=== PATIENT | male | born 1950 | race Caucasian/White ===

== ENCOUNTER → 2020-12-30 09:50 | Outpatient (CLI) | payer MEDICARE, SELFPAY ==
[2020-12-11 14:45] VITALS: BMI 31.5
--- NOTE | 2020-12-30 09:55 | ECHOD_ITS ---
Reason For Study: CHEST PAIN Procedure This was a 2D Doppler, Color Flow transthoracic echocardiogram. The study was technically difficult. Exam performed in department. Left Ventricle Normal LV size. Left ventricular systolic function is normal. The estimated ejection fraction is 65 %. No evidence for diastolic dysfunction. No regional wall motion abnormalities noted. Right Ventricle Normal RV size. Normal systolic function. Atria Normal left atrium. Normal right atrium. No doppler evidence for ASD. Mitral Valve There is no mitral annular calcification. Mild focal mitral valve calcification of the anterior leaflet. The mitral valve chordae are thickened and/or calcified. Trivial mitral valve insufficiency. Tricuspid Valve Normal tricuspid valve. Trivial tricuspid valve insufficiency. Right ventricular systolic pressure estimated to be 30 mmHg. Aortic Valve Trisinus/trileaflet aortic valve. Mild focal aortic valve thickening. Pulmonic Valve The pulmonic valve is not well visualized. Great Vessels Normal sized aortic root. Pericardium/Pleural No pericardial effusion. MMode/2D Measurements & Calculations LVIDd: 4.7 cm IVSd: 1.0 cm Ao root diam: 3.8 cm LVIDs: 2.6 cm LVPWd: 1.1 cm RVDd: 3.2 cm FS: 44.1 % LAV(MOD-bp): 53.3 ml LA A4 area: 17.5 cm2 RA A4 area: 14.0 cm2 LAV(MOD-bp) Indexed: 25.7 ml/m2 LAV(MOD-sp2): 51.5 ml LAV(MOD-sp4): 50.5 ml Time Measurements MV dec time: 0.26 sec Doppler Measurements & Calculations MV E max arcadio: 69.5 cm/sec Lat Peak E' Arcadio: 6.8 cm/sec Med Peak E' Arcadio: 9.2 cm/sec MV A max arcadio: 76.6 cm/sec E/E' lat: 10.3 E/E' med: 7.5 MV E/A: 0.91 Ao V2 max: 132.3 cm/sec LV V1 max: 123.5 cm/sec PA V2 max: 102.9 cm/sec Ao max P.0 mmHg LV V1 max P.1 mmHg TR max arcadio: 257.3 cm/sec TR max P.5 mmHg ECHO/Echo Complete Interpretation Summary The study was technically difficult. Left ventricular systolic function is normal. The estimated ejection fraction is 65 %. Mild focal mitral valve calcification of the anterior leaflet. The mitral valve chordae are thickened and/or calcified. Trivial mitral valve insufficiency. Trivial tricuspid valve insufficiency. Mild focal aortic valve thickening. Right ventricular systolic pressure estimated to be 30 mmHg. No evidence for diastolic dysfunction. Ordering Physician: Cayetano Calvillo Referring Physician: Cayetano Calvillo Performed By: Kaley Ortiz RDCS, RVT
== END ==
PROVIDERS: Referring Provider Internal Medicine Cardiovascular Disease; Visit Provider Internal Medicine Cardiovascular Disease
DX: R07.9 Chest pain, unspecified (principal); I25.10 Atherosclerotic heart disease of native coronary artery without angina pectoris; I25.84 Coronary atherosclerosis due to calcified coronary lesion; I10 Essential (primary) hypertension; E78.2 Mixed hyperlipidemia; Z82.49 Family history of ischemic heart disease and other diseases of the circulatory system
CPT/HCPCS: 93306

== ENCOUNTER → 2021-01-06 10:35 | Outpatient (CLI) | payer MEDICARE, SELFPAY ==
[2020-12-11 14:45] VITALS: BMI 31.5
--- NOTE | 2021-01-06 10:41 | STEWCON_ITS ---
Reason For Study: Chest Pain; Family HX of CAD Stress Results Protocol: Nik Protocol WITH DEFINITY Maximum Predicted HR: 152 bpm Target HR: 129 bpm % Maximum Predicted HR: 99 % DurationHeart Rate Stage (mm:ss) (bpm) BP Comment Baseline 60 126/80No Chest Pain; 4 ML Diluted Definity Nik Protocol Stage I 3:00 91 140/76No Chest Pain Nik Protocol Stage II 3:00 106 144/72No Chest Pain Nik Protocol Stage III 3:00 129 156/76No Chest Pain; Mild Dyspnea Nik Protocol Stage IV 2:00 150 / No Chest Pain; Mild to Mod Dyspnea Recovery 88 130/74No Chest Pain; No Dyspnea Stress Duration: 11:00 mm:ss Maximum Stress HR: 150 bpm METS: 13 Baseline Echocardiogram Findings Stress Echo Wall motion Data Resting WM Intermediate WM Stress WM Resting Wall Motion Wall Motion Stress All segments Normal. All segments Hyperkinetic. Ejection Fraction 60 %. Ejection Fraction 70 %. Stress Results Heart rate response: Appropriate Blood pressure response: Normal resting blood pressure-appropriate response Arrhythmias: Rare PAC and an isolated ventricular couplet during exercise Functional capacity: Good Stop secondary to: Dyspnea. EKG Data Baseline ECG: Sinus bradycardia. Peak exercise ECG: Somatic/motion artifact with no obvious ECG changes. Symptoms with Stress No complaint of chest discomfort during exercise or recovery. ECHO/Stress Test Echo W/Contrast Interpretation Summary Contrast injection performed Negative (adequate) stress echocardiogram Ordering Physician: Cayetano Calvillo Referring Physician: Cayetano Calvillo Performed By: Torrie Pedro RDCS
== END ==
PROVIDERS: Referring Provider Internal Medicine Cardiovascular Disease; Visit Provider Internal Medicine Cardiovascular Disease
DX: R07.9 Chest pain, unspecified (principal); I25.10 Atherosclerotic heart disease of native coronary artery without angina pectoris; I25.84 Coronary atherosclerosis due to calcified coronary lesion; I10 Essential (primary) hypertension; E78.2 Mixed hyperlipidemia; Z82.49 Family history of ischemic heart disease and other diseases of the circulatory system
CPT/HCPCS: 93017; 93350; Q9957; C8928; J3490

== ENCOUNTER 2024-01-18 08:01 | Emergency (ER) | payer MEDICARE, SELFPAY ==
[2024-01-18 08:02] VITALS: BP 144/88; PULSE 63; RESP 16; TEMP 36.2; O2SAT 95; BMI 31.1
--- NOTE | 2024-01-18 08:27 | CT_ITS ---
STUDY: CT ABDOMEN AND PELVIS WITH CONTRAST REASON FOR EXAM: Male, 73 years old. Right flank pain. Decreased urination. RADIATION DOSAGE (If Supplied By Facility): CTDIvol = ( 18.96 ) mGy, DLP = ( 1171.36 ) mGycm TECHNIQUE: Transaxial images were obtained from the dome of the diaphragm to the symphysis pubis without oral contrast. IV 100mL Isovue-300 was administered. Sagittal and coronal images were reconstructed. Individualized dose optimization techniques were used for this CT. COMPARISON: None. FINDINGS: Mild degree of increased linear markings at the lung bases suggest mild atelectasis. Coronary artery calcification. There is decreased attenuation of the liver consistent with steatosis. Normal gallbladder and extrahepatic biliary system. There is a 1.4 cm calcified nodule in the posterior medial superior aspect of the spleen. Normal pancreas. Normal bilateral adrenal glands. Bilateral renal cysts. The largest cyst in the left kidney measures 6.1 cm. The largest cyst in the left kidney measures 5.7 cm. There is a 4.5 mm calculus in the distal portion of the right ureter just proximal to the right ureterovesical junction. This causes a minimal degree of right hydronephrosis and right hydroureter. Normal visualized stomach. Normal small intestine. There are multiple colonic diverticula consistent with diverticulosis. The appendix is visualized and appears normal. Normal abdominal aorta. Normal inferior vena cava. There is small retroperitoneal lymphadenopathy with enlarged nodes no greater than 10mm in the short axis diameter. Mild degree of diffuse bilateral wall thickening. Prostatic enlargement with indentation of the bladder base. The prostate measures 5.2 cm x 6.1 cm. Normal abdominal wall. There are mild degenerative changes of the visualized lumbar spine. CT/Abdomen/Pelvis W IV Cont ONLY IMPRESSION: 4.5 mm calculus in the distal portion of the right ureter just proximal to the ureterovesical junction causing a mild degree of right hydronephrosis and right hydroureter. Bilateral renal cysts. Diffuse fatty infiltration of the liver. Mild degree of bibasilar linear atelectasis. Electronically Signed: Zane Lopez MD at 9:49 EDT ,
--- NOTE | 2024-01-18 08:27 | EKG12_ITS ---
Test Reason : DYSRHYTHMIA Blood Pressure : / mmHG Vent. Rate : 053 BPM Atrial Rate : 053 BPM P-R Int : 220 ms QRS Dur : 090 ms QT Int : 416 ms P-R-T Axes : 013 017 019 degrees QTc Int : 390 ms Poor data quality, interpretation may be adversely affected Sinus bradycardia with 1st degree A-V block Otherwise normal ECG No previous ECGs available Confirmed by Joe Valentine ([id number]), graphic editor KENN CASTRO ([id number]) on 01/24/2024 10:18:55 AM Referred By: JORGE Confirmed By:Joe Valentine
--- NOTE | 2024-01-18 08:29 | ED.RN ---
NO OLD EKGS
[2024-01-18] MEDS: 0.9% Normal Saline (1000mL) 1,000 ML 999 ML IV (08:38)
[2024-01-18] MEDS: Ondansetron 4 MG/2 ML Vial IV (08:39)
[2024-01-18] MEDS: Ketorolac 30 MG/ML Syringe IV (08:39)
--- NOTE | 2024-01-18 08:49 | EDS_ITS ---
HPI History of Present Illness Chief Complaint: Flank Pain Narrative Narrative: Patient is a 73-year-old male with a past medical history of hypertension, hyperlipidemia, hypercholesteremia, CAD who presented to the emergency department chief complaint of right-sided flank pain. Patient states on Monday afternoon he noted that he had some discomfort on the right side he states that he was taking Aleve/Advil for pain control which seem to be helping him. He states that last evening he noted that he developed a significant mount of pain in the right side. He states that he tried to take some narcotics at home for pain control that he had leftover he states that he was up all night in pain he states that if he attempted to move his pain became worse. Patient states that as things or not improving he came here for further evaluation management. Patient states he was never smoked [facility] Medical History Coronary artery calcification GISSEL on CPAP Essential hypertension Mixed hyperlipidemia Family history of cardiovascular disease Home Medications ?Medication ?Instructions ?Recorded ?Last Taken ?Type atorvastatin 40 mg tablet 40 mg PO QHS 12/02/20 Unknown History cholecalciferol (vitamin D3) 125 125 mcg PO DAILY 12/02/20 Unknown History mcg (5,000 unit) tablet coenzyme Q10 100 mg tablet 100 mg PO BID #1 TAB 12/02/20 Unknown Rx fenofibrate 160 mg tablet 160 mg PO DAILY #1 TAB 12/02/20 Unknown Rx omega-3 fatty acids 1,000 mg 1,000 mg PO BID #1 cap 12/02/20 Unknown Rx capsule (Fish Oil Concentrate) phytonadione (vitamin K1) 1,000 1 mg PO DAILY #1 cap 12/02/20 Unknown Rx mcg capsule resveratrol 250 mg capsule 250 mg PO DAILY #1 cap 12/02/20 Unknown Rx telmisartan 20 mg tablet 20 mg PO DAILY #1 TAB 12/02/20 Unknown Rx zinc 50 mg tablet 50 mg PO DAILY #1 TAB 12/02/20 Unknown Rx ascorbic acid (vitamin C) 500 mg 500 mg PO BID PRN 12/11/20 Unknown History tablet aspirin 81 mg tablet,delayed 81 mg PO DAILY #1 TAB 12/11/20 Unknown Rx release ondansetron 4 mg disintegrating 4 mg PO Q8H PRN nausea and 01/18/24 Unknown Rx tablet vomiting #14 tabs oxycodone-acetaminophen 5 mg-325 1 tab PO Q6H PRN pain 3 days #12 01/18/24 Unknown Rx mg tablet tabs Allergy/AdvReac Type Severity Reaction Status Date / Time No Known Allergies Allergy Verified 01/18/24 08:02 Family History Mother Hypertension Father , 54 CAD (coronary artery disease) History of coronary artery bypass surgery, Onset Age: 48 Brother , 31 Cardiomyopathy Sister , 46 Cardiomyopathy Grandfather Myocardial infarction, Onset Age: 48 Social History Smoking Status: Never smoker alcohol intake: never substance use type: does not use caffeine: Yes ROS ROS ED ROS Narrative Constitutional: Denies fevers, chills, headaches, lightheadedness, dizziness Eyes: Denies change in vision double vision blurry vision Cardiovascular: Denies chest pain or palpitations Respiratory: Denies coughing wheezing shortness of breath Abdomen: Does complain of some nausea denies abdominal pain vomiting diarrhea : Denies painful urination, hematuria, polyuria Neurological: Denies numbness weakness, tingling Musculoskeletal: Complains of right-sided flank pain as noted above Skin: Denies rashes or lesions EXAM Physical Exam Narrative Exam Narrative: General: Patient lying in bed rest comfortably did not appear to be in acute distress Head: Atraumatic, normocephalic Eyes: PERRL bilaterally, EOMI bilaterally, no conjunctival injection noted Neck: Soft, supple, trachea midline Cardiovascular: Regular rate and rhythm no murmurs gallops rubs noted Respiratory: Clear to auscultation bilaterally no rales rhonchi wheeze noted Abdomen: Soft, nondistended, no tenderness palpation, bowel sounds present x 4 Musculoskeletal: Minimal tenderness to palpation in the right flank region, no tenderness palpation midline thoracolumbar spine Extremities: +5/5 strength noted in the bilateral upper and lower extremities, no pedal edema on exam Neurological: Patient was following commands knew that he was at [facility] year is 2023 Skin: Warm, dry, intact, no rashes or lesions noted Const Vital Signs: 01/18/24 08:02 Temperature 97.1 F L Temperature Source Temporal Pulse Rate 63 Respiratory Rate 16 Blood Pressure 144/88 H Blood Pressure Mean 106 Pulse Ox 95 Oxygen Delivery Method Room Air MDM MDM MDM Narrative Medical decision making narrative: Patient is a 73-year-old male who presents to the emergency department the chief complaint of right-sided flank pain. Patient will have a workup performed here on the differential diagnose includes but not limited to ACS, AAA, urolithiasis, UTI, pyelonephritis. Once workup is obtained reviewed he will be reevaluated. Patient be given IV fluids, Toradol and Zofran. Patient CBC reviewed and showed no evidence of leukocytosis white blood count normal at 6.9, platelet count normal at 200, hemoglobin stable 15.8. Patient sodium normal 140, potassium normal 3.9, creatinine was 1.60 which appears to be around his baseline according to his previous blood draws that he had written down on a piece of paper that he brought with him here to the emergency department. Patient's AST and ALT were 2729 respectively. Patient lipase normal at 43, urinalysis showed 50 occult blood, negative nitrate, negative leukocyte Estrace and no white blood cells nor any bacteria were noted. Patient CT abdomen pelvis with IV contrast was reviewed and showed a 4.5 mm calculus in the distal portion of the right ureter just proximal to the ureterovesicular junction causing mild degree of right hydronephrosis and right hydroureter. Bilateral renal cyst. Diffuse fatty infiltration of the liver. Mild degree of basilar linear atelectasis noted. Patient is EKG reviewed and showed sinus bradycardia with a rate of 53 beats per minutes. I did discuss results with the patient is feeling improved from when he arrived. He would like to go home at this point time. Patient was encouraged to continue to take his tamsulosin at home. He will be given prescription for Percocet and Zofran. He was encouraged to also use ibuprofen for mild to m oderate pain control. He is agreeable with this plan he would like to go home. He was encouraged to return for fevers worsening pain persistent vomiting not tolerating oral intake. He verbalized understanding of this all question concerns he is discharged home in stable condition. Lab Data Labs: Laboratory Results - last 24 hr 01/18/24 01/18/24 08:37 09:07 WBC 6.9 RBC 5.72 Hgb 15.8 Hct 48.5 MCV 84.8 MCH 27.6 MCHC 32.6 RDW Std Deviation 48.3 H RDW Coeff of Zuleyma 15.8 H Plt Count 200 MPV 9.7 Immature Gran % (Auto) 0.400 Neut % (Auto) 63.9 Lymph % (Auto) 22.5 [place]ountain % (Auto) 9.7 Eos % (Auto) 2.9 Baso % (Auto) 0.6 Absolute Neuts (auto) 4.4 Absolute Lymphs (auto) 1.55 Nucleated RBC % 0 Sodium 140 Potassium 3.9 Chloride 110 H Carbon Dioxide 27.0 Anion Gap 3 L BUN 34 H Creatinine 1.60 H Estim Creat Clear Calc 46.86 Est GFR (MDRD) Af Amer 55 L Est GFR (MDRD) Non-Af 46 L BUN/Creatinine Ratio 21.2 H Glucose 105 Calcium 10.0 Total Bilirubin 0.70 AST 27 ALT 29 Alkaline Phosphatase 34 L Troponin I High Sens 13 Total Protein 7.1 Albumin 3.6 Globulin 3.5 Albumin/Globulin Ratio 1.0 Lipase 43 Urine Color Yellow Urine Clarity Clear Urine pH 5.0 Ur Specific [place] 1.025 Urine Protein Negative Urine Glucose (UA) Normal Urine Ketones Negative Urine Occult Blood 50 H Urine Nitrite Negative Urine Bilirubin Negative Urine Urobilinogen Normal Ur Leukocyte Esterase Negative Urine RBC 0 SEEN Urine WBC 0 SEEN Ur Squamous Epith Cells 0 SEEN Urine Bacteria 0 SEEN Urine Mucus 0 SEEN Radiography Diagnostic Testing: Clinical Impression(s) from Imaging Studies Abdomen/Pelvis CT 01/18/24 08:27 IMPRESSION: 4.5 mm calculus in the distal portion of the right ureter just proximal to the ureterovesical junction causing a mild degree of right hydronephrosis and right hydroureter. Bilateral renal cysts. Diffuse fatty infiltration of the liver. Mild degree of bibasilar linear atelectasis. Electronically Signed: Zane Lopez MD at 9:49 EDT , Discharge Plan Triage Chief Complaint: Flank Pain ED Provider: Harvey Rosenthal Dx/Rx/DC Orders Clinical Impression: Urolithiasis Instructions: ED Kidney Stone with Pain Prescriptions: New ondansetron 4 mg tablet,disintegrating 4 mg PO Q8H PRN (Reason: nausea and vomiting) Qty: 14 0RF oxycodone-acetaminophen 5-325 mg tablet 1 tab PO Q6H PRN (Reason: pain) 3 Days Qty: 12 0RF No Action ascorbic acid (vitamin C) 500 mg tablet 500 mg PO BID PRN aspirin 81 mg tablet,delayed release (DR/EC) 81 mg PO DAILY Qty: 1 0RF atorvastatin 40 mg tablet 40 mg PO QHS fenofibrate 160 mg tablet 160 mg PO DAILY Qty: 1 0RF telmisartan 20 mg tablet 20 mg PO DAILY Qty: 1 0RF coenzyme Q10 100 mg tablet 100 mg PO BID Qty: 1 0RF cholecalciferol (vitamin D3) 125 mcg (5,000 unit) tablet 125 mcg PO DAILY zinc 50 mg tablet 50 mg PO DAILY Qty: 1 0RF omega-3 fatty acids [Fish Oil Concentrate] 1,000 mg capsule 1,000 mg PO BID Qty: 1 0RF resveratrol 250 mg capsule 250 mg PO DAILY Qty: 1 0RF phytonadione (vitamin K1) 1,000 mcg capsule 1 mg PO DAILY Qty: 1 0RF Primary Care Provider: Care Physician,No Primary Referrals: Care Physician,No Primary [Primary Care Provider] - Cayetano Junior MD [Med Staff - Active Staff] - Activity Restrictions/Additional Instructions: Follow-up with your urologist in the outpatient setting. Take prescriptions as prescribed. Return for persistent fevers, inability tolerate oral intake with persistent vomiting or any other concerns. Print Language: Korean Disposition Disposition: Home, Self Care
[2024-01-18 09:02] LABS: AST(SGOT) 27 U/L (15-37); Absolute Lymphocyte Count 1.55 X10^3/uL (0.83-4.51); Absolute Neutrophil Count 4.4 X10^3/uL (2.0-7.7); Alanine Aminotransfer ALT/SGPT 29 U/L (16-61); Albumin, Serum 3.6 g/dL (3.2-5.0); Alkaline Phosphatase 34 U/L (45-117); Anion Gap 3 (5-15); BUN 34 mg/dL (7-18); BUN/Creat Ratio 21.2 RATIO (10-20); Basophil# 0.04 X10^3/uL; Basophil% 0.6 % (0-1); Chloride 110 mmol/L (98-107); EST Glomerular Filtration Rate 46 mL/min (>60); Eosinophils% 2.9 % (0-5); Est Glom Filt Rate - Afr Amer 55 mL/min (>60); Estimated Creatinine Clearance 46.86 ml/min; Globulin 3.5 g/dL (2.2-4.2); Glucose 105 mg/dL (74-106); Hematocrit 48.5 % (40-54); Hemoglobin 15.8 g/dL (13.0-16.5); Lipase 43 U/L (13-75); Lymphocyte # 1.55 X10^3/ul (0.83-4.51); Lymphocyte % 22.5 % (19-41); Mean Corp Hgb Conc 32.6 g/dL (32-36); Mean Corpuscular Hgb 27.6 pg (27.0-32.0); Mean Corpuscular Volume 84.8 fL (80-94); Mean Platelet Vol. 9.7 fl (6.2-12.0); Monocyte# 0.67 X10^3/uL; Monocyte% 9.7 % (0-10); NRBC Flagged by Analyzer 0 % (0-5); Neutrophil # 4.39 X10^3/uL (2.7-7.7); Neutrophil % 63.9 % (47-70); Platelet Count 200 K/mm3 (150-450); Potassium 3.9 mmol/L (3.5-5.1); Protein, Total 7.1 g/dL (6.4-8.2); RBC Distribution Width CV 15.8 % (11.6-14.6); RBC Distribution Width SD 48.3 fl (35.1-43.9); Red Blood Count 5.72 M/mm3 (4.6-6.2); Sodium Level 140 mmol/L (136-145); Troponin-I HS 13 pg/mL (3.0-78.0); White Blood Count 6.9 K/mm3 (4.4-11.0)
[2024-01-18 09:12] LABS: Bacteria 0 SEEN /hpf (None Seen); Mucous, Urine 0 SEEN /hpf (<or=2+); Red Blood Cells-Urine 0 SEEN /hpf (0-5); Squamous Epithelial Cells - UA 0 SEEN /hpf (0-5); White Blood Cells 0 SEEN /hpf (0-5)
[2024-01-18 09:17] LABS: Color, Urine Yellow (Yellow); Glucose, Dipstick Normal (Normal); Ketone-Dipstick Negative (Negative); Leukocyte Esterase-Dipstick Negative /ul (Negative); Nitrite-Dipstick Negative (Negative); Occult Blood-Urine 50 /ul (Negative); Protein-Dipstick Negative (Negative); Specific Gravity, Urine 1.025 (1.002-1.030); Urine Bilirubin Dipstick Negative (Negative); Urine Clarity Clear (Clear); Urine Urobilinogen Normal (Normal)
[2024-01-18 10:05] VITALS: BP 125/76; PULSE 70; RESP 17; O2SAT 95
[2024-01-18 10:30] VITALS: BP 128/74; PULSE 55; RESP 14; TEMP 36.6; O2SAT 92
== END 2024-01-18 10:35 | disposition home or self-care (01) ==
PROVIDERS: Emergency Provider Emergency Medicine; Visit Provider Emergency Medicine
DX: N13.2 Hydronephrosis with renal and ureteral calculous obstruction (principal); I10 Essential (primary) hypertension; N13.4 Hydroureter; N28.1 Cyst of kidney, acquired; I25.10 Atherosclerotic heart disease of native coronary artery without angina pectoris; K76.0 Fatty (change of) liver, not elsewhere classified; J98.11 Atelectasis; E78.2 Mixed hyperlipidemia; G47.33 Obstructive sleep apnea (adult) (pediatric); Z82.49 Family history of ischemic heart disease and other diseases of the circulatory system
CPT/HCPCS: 74177; 80053; 81001; 83690; 84484; 85025; 93005; 99282; J7030; Q9967; A4216; J2405

== ENCOUNTER → 2024-02-27 | Outpatient (CLI) | payer MEDICARE, SELFPAY ==
--- NOTE | 2024-02-27 14:51 | CT_ITS ---
STUDY: CT CHEST WITHOUT CONTRAST REASON FOR EXAM: Male, 73 years old. HX ISCHEMIC HEART DISEASE limited chest over read only RADIATION DOSAGE (If Supplied By Facility): CTDIvol = ( 12.19 ) mGy, DLP = ( 195.04 ) mGycm TECHNIQUE: Transaxial imaging was performed without the administration of intravenous contrast material. Individualized dose optimization techniques were used for this CT. COMPARISON: No relevant priors. FINDINGS: CHEST The lungs are normal. There is no demonstrated pleural abnormality. There are calcifications of the coronary arteries. Normal mediastinum. Normal hilar regions. Normal unenhanced pulmonary arteries. Normal aorta arch and descending thoracic aorta. Normal osseous structures. There is a 1.3 cm partially calcified nodule in the posterior medial aspect of the spleen. CT/Limited Chest CT Cardiac Only IMPRESSION: Coronary artery calcification. Partially calcified nodule in the posterior medial aspect of the spleen. Electronically Signed: Zane Lopez MD at 8:44 EDT ,
--- NOTE | 2024-02-27 17:18 | CA.SCORE ---
Calcium Scoring Date of Study:: 02/27/24 Indications Indications: Strong family history Coronary Calcium Scoring: High-resolution Computed Tomographic imaging of the chest was performed on [02/27/2024], with particular attention paid to the coronary arteries. Images from the examination were analyzed for the presence and extent of coronary artery calcification , using coronary calcium quantification software. The patient tolerated the procedure well and there were no complications. The results of the coronary calcification analysis are provided below. Findings Coronary Artery Left Main (LM): 0 Left Anterior Descending (LAD): 467 Left Circumflex (LCX): 95 Right Coronary Artery (RCA): 561 Total Agatston Score: 1,123 Percentile Rankin to 90th Calcium Scoring Interpretation: Different methods to categorize the overall amount of coronary plaque. Overall amount CAC SIS Visual of coronary plaque P1 Mild -100 <2 1-2 vessels with mild amount of plaque P2 Moderate 101-300 3-4 1-2 vessels with moderate amount, 3 vessels with mild amount of plaque P3 Severe 301-999 5-7 3 vessels with moderate amount, 1 vessel with severe amount of plaque P4 Extensive >1000 >8 2-3 vessels with severe amount of plaque Calcium Score: Extensive: 2-3 vessels w/severe amount of plaque Conclusion: Extensive 2-3 vessels with severe amount of plaque noted
== END | disposition home or self-care (01) ==
PROVIDERS: Referring Provider Nurse Practitioner Family; Visit Provider Nurse Practitioner Family
DX: R03.0 Elevated blood-pressure reading, without diagnosis of hypertension (principal); E78.5 Hyperlipidemia, unspecified; Z82.49 Family history of ischemic heart disease and other diseases of the circulatory system; I25.10 Atherosclerotic heart disease of native coronary artery without angina pectoris
CPT/HCPCS: 75571; 76380

== ENCOUNTER → 2024-03-04 | Outpatient (CLI) | payer MEDICARE, SELFPAY ==
--- NOTE | 2024-03-04 11:35 | RAD_ITS ---
STUDY: X-RAY - ABDOMEN/PELVIS REASON FOR EXAM: Male, 73 years old. CALCULUS OF URETER TECHNIQUE: Single AP view of the abdomen / pelvis. COMPARISON: None. FINDINGS: Normal visualized lung bases. There is an unremarkable bowel gas pattern. The visualized liver, spleen and kidneys are grossly normal in size and morphology. Normal soft tissue structures. Normal visualized osseous structures. RAD/Abdomen Single View IMPRESSION: Normal x-ray examination of the abdomen and pelvis. Electronically Signed: Abilio Altamirano MD at 10:11 EDT ,
[2024-03-06 13:08] LABS: PSA, Free 1.18 ng/mL; PSA, Free % 24.8 % (.)
== END | disposition home or self-care (01) ==
LOC: LAB 11:22 → RAD 11:28
PROVIDERS: PCP Nurse Practitioner Family; Referring Provider Urology; Visit Provider Urology
DX: R97.20 Elevated prostate specific antigen [PSA] (principal); N20.1 Calculus of ureter
CPT/HCPCS: 36415; 74018; 84153; 84154

== ENCOUNTER → 2024-04-22 | Outpatient (CLI) | payer MEDICARE, SELFPAY ==
--- NOTE | 2024-04-22 10:44 | ECHOD_ITS ---
Reason For Study: CHEST PAIN Procedure This was a 2D Doppler, Color Flow transthoracic echocardiogram. Myocardial strain analysis was performed in this exam to aid in the assessment of cardiac function. Exam performed in department. Left Ventricle Normal LV size. Mild concentric left ventricular hypertrophy. The left ventricular ejection fraction is 60 %. Normal diastology for age. Right Ventricle Normal right ventricle. Atria The left and right atria are normal. Mitral Valve Mild (1+) mitral valve insufficiency. Tricuspid Valve Trivial tricuspid valve insufficiency. Unable to estimate RV systolic pressure due to insufficient tricuspid regurgitant envelope. Aortic Valve Trisinus/trileaflet aortic valve. Pulmonic Valve The pulmonic valve is not well visualized. Trivial pulmonic valve insufficiency. Great Vessels Normal sized aortic root. Pericardium/Pleural No pericardial effusion. MMode/2D Measurements & Calculations LVIDd: 4.3 cm IVSd: 1.2 cm LVOT diam: 2.1 cm LVIDs: 2.8 cm LVPWd: 1.1 cm LVOT area: 3.5 cm2 RVDd: 3.3 cm FS: 35.3 % asc Aorta Diam: 3.5 cm LAV(MOD-bp): 49.5 ml LVAd ap4: 26.2 cm2 LAV(MOD-bp) Indexed: 24.0 ml/m2 LVLd ap4: 7.8 cm LAV(MOD-sp2): 54.5 ml EDV(MOD-sp4): 71.5 ml LAV(MOD-sp4): 40.4 ml EDV(sp4-el): 74.7 ml LVAs ap4: 15.1 cm2 LVLs ap4: 6.5 cm ESV(MOD-sp4): 28.9 ml ESV(sp4-el): 29.5 ml EF(MOD-sp4): 59.7 % EF(sp4-el): 60.4 % LVAd ap2: 26.3 cm2 SV(MOD-sp4): 42.7 ml SV(MOD-sp2): 42.9 ml LVLd ap2: 8.0 cm SI(MOD-sp4): 20.7 ml/m2 SI(MOD-sp2): 20.8 ml/m2 EDV(MOD-sp2): 69.1 ml EDV(sp2-el): 73.0 ml LVAs ap2: 14.6 cm2 LVLs ap2: 6.7 cm ESV(MOD-sp2): 26.2 ml ESV(sp2-el): 27.0 ml EF(MOD-sp2): 62.1 % SV(sp4-el): 45.1 ml Ao sinus diam: 3.[address] Junction: 2.8 cm LA dimension(2D): 3.5 cm LA A4 area: 15.6 cm2 RA A4 area: 13.4 cm2 TAPSE: 2.1 cm Time Measurements MV dec time: 0.30 sec Doppler Measurements & Calculations MV E max arcadio: 70.7 cm/sec Lat Peak E' Arcadio: 8.2 cm/sec Med Peak E' Arcadio: 7.3 cm/sec MV A max arcadio: 78.2 cm/sec E/E' lat: 8.6 E/E' med: 9.7 MV E/A: 0.90 MV dec slope: 234.7 cm/sec2 Ao V2 max: 109.8 cm/sec LV V1 max: 96.8 cm/sec Ao max P.8 mmHg LV V1 max P.7 mmHg Ao V2 mean: 81.1 cm/sec LV V1 mean P.1 mmHg Ao mean P.9 mmHg LV V1 mean: 70.9 cm/sec Ao V2 VTI: 23.8 cm LV V1 VTI: 20.6 cm AV (velocity ratio): 0.87 DARRYN(I,D): 3.1 cm2 DARRYN(V,D): 3.1 cm2 SV(LVOT): 73.0 ml PA V2 max: 109.0 cm/sec PA max PG (full): 3.1 mmHg ECHO/Echo Complete Interpretation Summary Mild concentric left ventricular hypertrophy. The left ventricular ejection fraction is 60 %. Mild (1+) mitral valve insufficiency. Ordering Physician: Joe Valentine Referring Physician: Joe Valentine MD Performed By: Natali Cardoza RDCS and Student
--- NOTE | 2024-04-22 13:24 | STRESSREP ---
Stress Test Report Date: 04/22/2024 Procedure: Exercise tolerance test Indications: Chest pain Consent: Per the patient Procedure: The patient exercised on a Nik protocol for 10 minutes achieving a peak heart rate of 151 bpm (101% predicted maximal heart rate) with a peak blood pressure 198/70 mmHg and a peak MET capacity of approximately 13.4 MET's. The baseline ECG demonstrated sinus rhythm. The peak exercise ECG demonstrated borderline horizontal ST depressions in inferior leads. Occasional PVCs noted pretest and during exercise. The functional capacity was considered excellent for age. The patient had no complaints of chest discomfort during exercise or recovery. Mild dyspnea reported. The examination was discontinued secondary to target heart rate being achieved. Impression: 1. Technically adequate (percent predicted maximal heart rate greater than 85%) exercise tolerance test. No angina reported. 2. Peak exercise ECG with borderline horizontal ST depressions in inferior leads suggestive of ischemia. Baseline artifact affects interpretation however. Consider additional testing with an imaging modality if clinically indicated. 3. Occasional PVCs noted pretest and during exercise. This note was generated with [employer] dictation software. It may contain incorrect words, spelling, and punctuation that were not noted in checking the note before signing.
== END | disposition home or self-care (01) ==
PROVIDERS: PCP Nurse Practitioner Family; Referring Provider Internal Medicine Cardiovascular Disease; Visit Provider Internal Medicine Cardiovascular Disease
DX: R07.9 Chest pain, unspecified (principal)
CPT/HCPCS: 93017; 93306